=== PATIENT | female | born 1990 | race Caucasian/White ===

== ENCOUNTER 2017-07-07 04:18 | Inpatient (IN) | payer OTHER ==
[2017-07-07] MEDS ORDERED: RINGERS SOLUTION,LACTATED 300 ML IV ONE (04:40)
[2017-07-07] MEDS ORDERED: PENICILLIN G POTASSIUM 5,000,000 UNIT in DEXTROSE 5%-WATER 100 ML IV ONE (04:40)
[2017-07-07] MEDS ORDERED: RINGERS SOLUTION,LACTATED 1,000 ML IV PRN (04:40)
[2017-07-07] MEDS ORDERED: PENICILLIN G-K 5 MILLION UNIT VIAL ONE ×2 (04:54→09:03)
[2017-07-07 05:02] LABS: APPEARANCE,URINE CLEAR; BILIRUBIN,URINE NEGATIVE (NEGATIVE); GLUCOSE, URINE NEGATIVE (NEGATIVE); KETONES,URINE NEGATIVE (NEGATIVE); LEUKOCYTE ESTERASE,URINE NEGATIVE (NEGATIVE); NITRITE,URINE NEGATIVE (NEGATIVE); PROTEIN,URINE NEGATIVE (NEGATIVE); URINE SPECIFIC GRAVITY 1.005; UROBILINOGEN,URINE NEGATIVE mg/dL (<2.0)
[2017-07-07 05:04] LABS: ABSOLUTE EOSINOPHILS # (AUTO) 0.1 10^3/uL (0.0-0.6); ABSOLUTE LYMPHOCYTES (AUTO) 1.6 10^3/uL (0.5-4.7); ABSOLUTE MONOCYTES (AUTO) 0.7 10^3/uL (0.1-1.4); ABSOLUTE NEUT (AUTO) 11.8 10^3/uL (1.7-8.2); BASOPHILS % (AUTO) 0.3 % (0-2); EOSINOPHILS % (AUTO) 0.4 % (0-6); HEMATOCRIT 36.9 % (36.0-47.0); HEMOGLOBIN 12.6 g/dL (12.0-15.5); HGB HCT DIFFERENCE 0.9; LYMPHOCYTES % (AUTO) 11.1 % (13-45); MEAN CORPUSCULAR HEMOGLOBIN 29.5 pg (27.0-33.4); MEAN CORPUSCULAR HGB CONC 34.3 g/dL (32.0-36.0); MEAN CORPUSCULAR VOLUME 86 fl (80-97); MONOCYTES % (AUTO) 5.3 % (3-13); RED BLOOD COUNT 4.28 10^6/uL (3.72-5.28); SEGMENTED NEUTROPHILS % (AUTO) 82.9 % (42-78); WHITE BLOOD COUNT 14.2 10^3/uL (4.0-10.5)
[2017-07-07 05:16] LABS: URINE BARBITURATES SCREEN NEGATIVE; URINE METHADONE SCREEN NEGATIVE; URINE OPIATES LOW NEGATIVE; URINE PHENCYCLIDINE SCREEN NEGATIVE
[2017-07-07 05:21] LABS: ALANINE AMINOTRANSFERASE 36 U/L (9-52); ALBUMIN 3.5 g/dL (3.5-5.0); ALKALINE PHOSPHATASE 207 U/L (38-126); ANION GAP 11 (5-19); ASPARTATE AMINO TRANSFERASE 21 U/L (14-36); BILIRUBIN,DIRECT 0.2 mg/dL (0.0-0.4); BILIRUBIN,TOTAL 0.3 mg/dL (0.2-1.3); BLOOD UREA NITROGEN 8 mg/dL (7-20); CALCIUM 9.1 mg/dL (8.4-10.2); CARBON DIOXIDE 22 mmol/L (22-30); CHLORIDE 107 mmol/L (98-107); CREATININE RESULT 0.55 mg/dL (0.52-1.25); GLUCOSE 89 mg/dL (75-110); LDH 408 U/L (313-618); SODIUM 139.6 mmol/L (137-145); TOTAL PROTEIN 6.3 g/dL (6.3-8.2); URIC ACID 3.5 mg/dL (2.5-6.2)
[2017-07-07 05:30] LABS: POTASSIUM 4.1 mmol/L (3.6-5.0)
[2017-07-07] MEDS ORDERED: OXYTOCIN/NORMAL SALINE 20 UNIT/1,000 ML RTUINJ ONE (06:51)
[2017-07-07] MEDS ORDERED: OXYTOCIN/NORMAL SALINE 20,000 UNIT/1,000,000 ML RTUINJ IV PRN (07:00)
[2017-07-07] MEDS ORDERED: PENICILLIN G POTASSIUM 2,500,000 UNIT in DEXTROSE 5%-WATER 50 ML IV SCH (09:00)
[2017-07-07] MEDS ORDERED: PENICILLIN G-K 5 MILLION UNIT VIAL IV SCH (10:00)
--- NOTE | 2017-07-07 10:38 | L&D Progress Notes ---
PROGRESS NOTES Datetime Report Generated by CPN: 07/07/2017 10:38 PROGRESS NOTE Impression: Normal Progression of Labor Plan: Continue Present Management Informed Consent Obtained: Vaginal Delivery; Induction of Labor Vital Signs : Reviewed; Within Normal Limits Comment: IOL for CHTN at term. denies PASTOR/visual changes/RUQ pain. DTRs 2+/2+. denies needs. SROM for clear fluid at 0900. c/w Dr Gilliland, continue pitocin IOL, anticipate VAGINAL EXAM Contractions: Q2 mins-mild to mod MEMBRANES Membranes: Ruptured FETUS A FHR - Baseline: 145 Monitoring: External US Variability: Moderate 6-25bpm Accelerations: 15X15 Decelerations: None FHR Category: Category I : 40+2 Estimated Weight (gm): 3300 Presentation: Vertex SIGNATURE SIGNATURE: [id number] Assignment: Ellen Gilliland MD Signature: with User ID: [email or web address] : with User ID: [email or web address]
[2017-07-07] MEDS ORDERED: MISOPROSTOL 0.2 MG TABLET ONE (11:46)
[2017-07-07] MEDS ORDERED: LIDOCAINE 1% INJ-PF (10 MG/ML) 30 ML SDV ONE (11:47)
[2017-07-07] MEDS ORDERED: ACETAMINOPHEN WITH CODEINE #3 TABLET PO PRN ×2 (12:31)
[2017-07-07] MEDS ORDERED: MAGNESIUM HYDROXIDE SUSP 30 ML UDCUP PO PRN (12:31)
[2017-07-07] MEDS ORDERED: GLYCERIN/WITCH HAZEL LEAF 1 EACH MED..PAD TP PRN (12:31)
[2017-07-07] MEDS ORDERED: PROMETHAZINE HCL 25 MG SUPP.RECT PR PRN (12:31)
[2017-07-07] MEDS ORDERED: DIBUCAINE 1% OINTMENT 28 GM TP PRN (12:31)
[2017-07-07] MEDS ORDERED: NA PHOS,M-B/NA PHOS,DI-BA (ADULT) 133 ML ENEMA PR PRN (12:31)
[2017-07-07] MEDS ORDERED: ACETAMINOPHEN 650 MG SUPP.RECT PR PRN (12:31)
[2017-07-07] MEDS ORDERED: PROMETHAZINE HCL 25 MG TABLET PO PRN (12:31)
[2017-07-07] MEDS ORDERED: PROMETHAZINE HCL INJ 25 MG/1 ML VIAL IV PRN (12:31)
[2017-07-07] MEDS ORDERED: ZOLPIDEM TARTRATE 5 MG TABLET PO PRN (12:31)
[2017-07-07] MEDS ORDERED: PSEUDOEPHEDRINE HCL 30 MG TABLET PO PRN (12:31)
[2017-07-07] MEDS ORDERED: MEASLES,MUMPS&RUBELLA VACC/PF 0.5 ML VIAL SUBCUT PRN (12:31)
[2017-07-07] MEDS ORDERED: DIPHENHYDRAMINE HCL 25 MG CAPSULE PO PRN (12:31)
[2017-07-07] MEDS ORDERED: OXYTOCIN/NORMAL SALINE 20 UNIT/1,000 ML RTUINJ IV PRN (12:31)
[2017-07-07] MEDS ORDERED: BENZOCAINE/MENTHOL AEROSOL SPRAY 56 ML TOP PRN (12:31)
[2017-07-07] MEDS ORDERED: DIPH/PERTUSS(ACELL)/TETANUS VAC/PF 0.5 ML SYR (>=10YO) IM PRN (12:31)
--- NOTE | 2017-07-07 14:23 | Admission Physical ---
Datetime Report Generated by CPN: 07/07/2017 14:23 CURRENT ADMISSION Chief Complaint: Scheduled Induction of Labor Indication for Induction: Chronic Hypertension; Maternal Diabetes Indication for Induction: Term, Intrauterine ; No Active Labor; Induction of Labor Indication for Induction- Other: A1 GDM Admit Plan: Admit to Unit; Initiate Labor Induction Protocol ALLERGIES Medication Allergies: No Medication Allergies: No Known Allergies (07/07/2017) Latex: No Latex Allergies Food Allergies: none Environmental Allergies: none OBSTETRICAL HISTORY EDC: 07/05/2017 00:00 : 2 Para: 1 Term: 1 : 0 SAB: 0 IAB: 0 Ectopic: 0 Livin Cesareans: 0 VBACs: 0 Multiple Births: 0 Gestational Diabetes: Yes Rh Sensitization: No Incompetent Cervix: No KIM: No Infertility: No ART Treatment: No Uterine Anomaly: No IUGR: No Hx Previous C/S: No Macrosomia: No Hx Loss/Stillborn: No PIH: No Hx : No Placenta Previa/Abruption: No Depression/PP Depression: No PTL/PROM: No Post Hemorrhage: No Current Procedures: Ultrasound; NST Obstetrical History Comments: G1: Female 2006 7 lbs 13 ounces G2: Current, GDM, CHTN SEE RECORDS Alcohol: No Marijuana : No Cocaine: No Other Illicit Drugs: No Cigarettes: Never Smoker. 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 Heart Disease: No Hosp/Surgery: Yes Autoimmune Disorder: No Anesthetic Complications: No Kidney Disease: No Abnormal Pap Smear: No Neuro/Epilepsy: No Psychiatric Disorders: No Other Medical Diseases: No Hepatitis/Liver Disease: No Significant Family History: No Varicosities/Phlebitis: No Trauma/Violence : No Thyroid Dysfunction: No Medical History Comments: CHTN, GDM, Childbirth, R Ul[place] shortened INFECTIOUS HISTORY Gonorrhea: No Genital Herpes: No Chlamydia: No Tuberculosis: No Syphilis: No Hepatitis: No HIV/AIDS Exposure: No Rash or Viral Illness: No HPV: No PHYSICAL EXAM General: Normal HEENT: Normal Neurologic: Normal Thyroid: Normal Heart: Normal Lungs: Normal Breast: Deferred Back: Normal Abdomen: Normal Genitourinary Exam: Deferred Extremities: Normal DTRs: Normal Pelvic Type: Adequate Vital Signs: Reviewed Details Vital Signs: mild range elevated BP VAGINAL EXAM Contraction Comments: Q2 mins-mild to mod MEMBRANES Membranes: Ruptured FETUS A EGA: 40.2 Monitoring: External US FHR- Baseline: 145 Variability: Moderate 6-25bpm Accelerations: 15X15 Decelerations: None FHR Category: Category I Estimated Weight (gm): 3300 Presentation: Vertex PLANS FOR LABOR AND DELIVERY Labor and Delivery: None Pain Management: None Feeding Preference: Breast Benefit of Breast Feed Discussed: Yes Circumcision: Yes INFORMED CONSENT Informed Consent Obtained: Vaginal Delivery; Induction of Labor Assignment: Ellen Gilliland MD Signature: with User ID: [email or web address], Addendum/Amendment: 27yo at 40w2d with CHTN, not on meds during (was on lisinopril prior to . Also GDM A1 with FSBS 86 at 0500. Admitted this AM for IOL with cx /-1. GBS positive. P: GBS pos-penicillin IV Q4h until delivery; CHTN-continue to monitor for s/s worsening HTN, PIH labs; GDM-resume regular diet, no meds. Signature: with User ID: [email or web address] : with User ID: [email or web address], Addendum/Amendment: 27yo at 40w2d with CHTN, not on meds during (was on lisinopril prior to . Also GDM A1 with FSBS 86 at 0500. Admitted this AM for IOL with cx /-1. GBS positive. P: GBS pos-penicillin IV Q4h until delivery; CHTN-continue to monitor for s/s worsening HTN, PIH labs; GDM-resume regular diet, no meds. : with User ID: [email or web address]
--- NOTE | 2017-07-07 16:18 | Delivery Summary ---
Del Sum A-C Datetime Report Generated by CPN: 07/07/2017 16:18 DELIVERY PERSONNEL DELIVERY PERSONNEL: [id number] Delivery Doctor:: Carter Brizuela CNM Nurse Loop Sewer Certified:: Carter Brizuela CNM Labor and Delivery Nurse:: TONG Steiner Tech/TECHNICAL SALES ADVISOR: J Gutierres ST MATERNAL INFORMATION Delivery Anesthesia: None Medications After Delivery: Pitocin Bolus-Please Comment; Pitocin Drip 20 Units/1000ml NSS Estimated Blood Loss (ml): 300 Provider Comments: AFTER IOL FOR CHTN, MICHELLE OF VIABLE MALE WITH SPONTANEOUS CRY AFTER STIMULATION. CORD CLAMP DELAYED BY 1.5 MINUTES. CORD DOUBLE CLAMPED AND CUT BY FOB. LEFT PERIURETHRAL LACERATION NOT REPAIRED. SPONTANEOUS INTACT PLACENTA DELIVERED. MOTHER AND STABLE IN L_D #5. LABOR SUMMARY EDC: 07/05/2017 00:00 No. Babies in Womb: 1 Attempted: No Labor Anesthesia: None LABOR INFORMATION Reason for Induction: Maternal Diabetes Onset of Labor: 07/07/2017 10:00 Complete Dilatation: 07/07/2017 12:19 Oxytocin: Induction Group B Beta Strep: Positive Antibiotics Time of Last Dose: Name of Antibiotic Given: PCN Steroids Given: None Reason Steroids Not Administered: Not Applicable MEMBRANES Membranes Rupture Method: Spontaneous Rupture of Membranes: 07/07/2017 09:00 Length of Rupture (hr): 3.45 Amniotic Fluid Color: Clear Amniotic Fluid Amount: Small STAGES OF LABOR Stage 1 hr: 2 Stage 1 min: 19 Stage 2 hr: 0 Stage 2 min: 8 Stage 3 hr: 0 Stage 3 min: 10 Total Time in Labor hr: 2 Total Time in Labor min: 37 VAGINAL DELIVERY Episiotomy: None Laceration #1: Periurethral Laceration Extension #1: N/A Laceration Repair: Not Applicable Laceration Repair Note: left periurethral hemostatic, no repair needed Sponge Count Correct: Yes Sharps Count Correct: Yes CSECTION DELIVERY Primary Indication: N/A Secondary Indication: N/A CSection Incidence: N/A Labor: N/A Elective: N/A CSection Incision: N/A BABY A INFORMATION Infant Delivery Date/Time: 07/07/2017 12:27 Method of Delivery: Vaginal Born in Route : No : N/A Forceps: N/A Vacuum Extraction: N/A Shoulder Dystocia : Yes PRESENTATION/POSITION BABY A Presentation: Cephalic Cephalic Presentation: Vertex Vertex Position: Left Occipital Anterior Breech Presentation: N/A PLACENTA INFORMATION BABY A Placenta Delivery Time : 07/07/2017 12:37 Placenta Method of Delivery: Spontaneous Placenta Status: Delivered SCORES BABY A Heart Rate 1 min: >100 bpm Resp Effort 1 min: Good Cry Reflex Irritability 1 min: Cough or Sneeze or Pulls Away Muscle Tone 1 min: Active Motion Color 1 min: Blue/Pale Resuscitation Effort 1 min: Tactile Stimulation SCORE 1 MIN: 8 Heart Rate 5 min: >100 bpm Resp Effort 5 min: Good Cry Reflex Irritability 5 min: Cough or Sneeze or Pulls Away Muscle Tone 5 min: Active Motion Color 5 min: Body Shell Point, Extremities Blue Resuscitation Effort 5 min: N/A SCORE 5 MIN: 9 Resuscitation Effort 10 min: N/A INFORMATION BABY A Gestational Age at Delivery: 40.2 Gestational Status: Full Term- 39- 40.6 Weeks Infant Outcome : Liveborn Condition : Stable Infant Sex: Male IDENTIFICATION BABY A Infant Verification Date/Time: 07/07/2017 12:56 ID Band Number: [id number] Mother's Name Verified: Yes Infant RN Verifying : K Barrington RNC/C Otiliaerman RN WEIGHT/LENGTH BABY A Infant Birthweight (gm): 3815 Weight (lb): 8 Weight (oz): 7 Infant Length (in): 21.50 Infant Length (cm): 54.61 CORD INFORMATION BABY A No. Cord Vessels: 3 Nuchal Cord : N/A Cord Blood Taken: Yes-For Storage (Mom's Blood type +) Infant Suction: Mouth; Nose ASSESSMENT BABY A Complications: None Physical Findings at Delivery: Within Normal Limits Infant Respirations: Appears Normal Skin to Skin: Yes Skin to Skin Time (min): 60 Haul Truck Driver/ALS Called : No Care By: K Barrington RNC Transferred To: Remains with Mother BABY B INFORMATION : N/A SIGNATURES Assignment: Ellen Gilliland MD Signature: with User ID: [email or web address] : with User ID: [email or web address] : I was personally available for consultation and serving as supervising physician for the MLP.
[2017-07-07] MEDS: IBUPROFEN 800 MG TABLET PO SCH ×2 (18:05→21:47)
[2017-07-07] MEDS: FERROUS SULFATE 325 MG TABLET PO SCH (18:53)
[2017-07-07] MEDS: DOCUSATE SODIUM 100 MG CAPSULE PO SCH (18:54)
[2017-07-07] MEDS: FAMOTIDINE 20 MG TABLET PO SCH (21:48)
[2017-07-08] MEDS: IBUPROFEN 800 MG TABLET PO SCH ×3 (06:03→21:19)
[2017-07-08 07:50] LABS: HEMATOCRIT 34.6 % (36.0-47.0); HEMOGLOBIN 11.7 g/dL (12.0-15.5); HGB HCT DIFFERENCE 0.5; MEAN CORPUSCULAR HEMOGLOBIN 29.3 pg (27.0-33.4); MEAN CORPUSCULAR HGB CONC 33.7 g/dL (32.0-36.0); MEAN CORPUSCULAR VOLUME 87 fl (80-97); RED BLOOD COUNT 3.97 10^6/uL (3.72-5.28); RED CELL DISTRIBUTION WIDTH 13.1 % (11.5-14.0); WHITE BLOOD COUNT 13.3 10^3/uL (4.0-10.5)
[2017-07-08] MEDS ORDERED: PRENATAL VITAMIN W-O CA NO5/FE FUMARATE/FA CAPSULE PO SCH (10:00)
--- NOTE | 2017-07-08 10:09 | PDOC PROGRESS REPORT ---
Subjective-OB Subjective: Post Delivery Day: 1 27 year old. Denies any needs at this time, states lochia is stable, pain well controlled, voiding without difficulty. Physical Exam (OB) Vital Signs: Temp Pulse Resp BP Pulse Ox 98 F 73 16 127/74 H 100 07/08/17 08:57 07/08/17 08:57 07/08/17 08:57 07/08/17 08:57 07/08/17 08:57 Intake & Output 07/07/17 07/08/17 07/09/17 06:59 06:59 06:59 Weight 76.6 kg - Lochia Lochia Amount: Scant < 10 ml Lochia Color: Rubra/Red - Abdomen Description: Soft, Flat Hernia Present: No Fundal Description: Firm, Midline Fundal Height: u/3 - u/4 Objective-Diagnostic Laboratory: 07/08/17 07:30 07/07/17 04:53 07/08/17 07:30 WBC 13.3 H RBC 3.97 Hgb 11.7 L Hct 34.6 L MCV 87 MCH 29.3 MCHC 33.7 RDW 13.1 Plt Count 147 L Assessment and Plan(PN) - Assessment and Plan (1) Vaginal delivery Is this a current diagnosis for this admission?: Yes Plan: routine pp care (2) Acute blood loss anemia Is this a current diagnosis for this admission?: Yes Plan: ferrous sulfate increase dietary iron (3) Chronic hypertension Is this a current diagnosis for this admission?: Yes Plan: monitor bp (4) Gestational diabetes Qualifiers: Gestational diabetes mellitus control: diet-controlled Is this a current diagnosis for this admission?: Yes Plan: monitor yearly - Time Spent with Patient Time with patient: Less than 15 minutes Critical Time spent with patient: Less than 15 minutes Medications reviewed and adjusted accordingly: Yes - Disposition Anticipated Discharge: Home Within: within 24 hours
[2017-07-08] MEDS: PRENATAL VITAMIN W DHA CAPSULE PO SCH (10:24)
[2017-07-08] MEDS: FAMOTIDINE 20 MG TABLET PO SCH ×2 (10:24→21:19)
[2017-07-08] MEDS: SENNOSIDES/DOCUSATE 8.6-50 MG 1 EACH TABLET PO SCH (10:25)
[2017-07-08] MEDS: FERROUS SULFATE 325 MG TABLET PO SCH ×2 (10:25→17:29)
[2017-07-08] MEDS: DOCUSATE SODIUM 100 MG CAPSULE PO SCH ×2 (10:25→17:29)
[2017-07-09] MEDS: IBUPROFEN 800 MG TABLET PO SCH ×2 (05:43→14:38)
[2017-07-09] MEDS: FAMOTIDINE 20 MG TABLET PO SCH (09:35)
[2017-07-09] MEDS: SENNOSIDES/DOCUSATE 8.6-50 MG 1 EACH TABLET PO SCH (09:35)
[2017-07-09] MEDS: DOCUSATE SODIUM 100 MG CAPSULE PO SCH ×2 (09:36→17:26)
[2017-07-09] MEDS: FERROUS SULFATE 325 MG TABLET PO SCH ×2 (09:36→17:26)
[2017-07-09] MEDS: PRENATAL VITAMIN W DHA CAPSULE PO SCH (09:36)
--- NOTE | 2017-07-09 09:50 | PDOC DISCHARGE SUMMARY ---
Final Diagnosis Discharge Date: 07/09/17 - Final Diagnosis (1) Vaginal delivery Is this a current diagnosis for this admission?: Yes (2) Acute blood loss anemia Is this a current diagnosis for this admission?: Yes (3) Chronic hypertension Is this a current diagnosis for this admission?: Yes (4) Gestational diabetes Is this a current diagnosis for this admission?: Yes Discharge Data - Discharge Medication Home Medications: Vitamin [-U Multiple Vitamin Capsule] 1 tab PO DAILY 07/07/17 Docusate Sodium [Colace 100 mg Capsule] 100 mg PO BID #60 capsule 07/09/17 Ibuprofen [Motrin 800 mg Tablet] 800 mg PO Q8 #60 tablet 07/09/17 Gestational Age: 40.2 Reason(s) for Admission: Induction of Labor, PIH, Gestional Diabetes, Group B Strep Positive Procedures: NST Intrapartum Procedure(s): Spontaneous Vaginal Delivery - Data Baby 1 Male at 1 minute: 8 at 5 minutes: 9 Weight: 3815 kg Home with Mother: Yes Complications: No - Diagnosis Test Laboratory: Temp Pulse Resp BP Pulse Ox 97.7 F 73 15 134/75 H 100 07/09/17 07:44 07/09/17 07:44 07/09/17 07:44 07/09/17 07:44 07/09/17 07:44 07/07/17 07/07/17 07/08/17 04:29 04:53 07:30 RBC 4.28 3.97 Hgb 12.6 11.7 L Hct 36.9 34.6 L Urine Opiates Screen NEGATIVE - Discharge information/Instructions Discharge Activity: Activity As Tolerated, Pelvic Rest, No tub bath Discharge Diet: Regular Disposition: HOME, SELF-CARE Follow up with: [facility] in: 1, Weeks
[2017-07-09 16:04] VITALS: BP 122/74
== END 2017-07-09 19:00 | disposition home or self-care (01) | DRG 774 ==
LOC: LR 04:18 → 2S 14:22
PROVIDERS: ADMIT Student in an Organized Health Care Education/Training Program; ATTEND Student in an Organized Health Care Education/Training Program
PROC: 10E0XZZ Delivery of Products of Conception, External Approach (ICD-10-PCS; principal; 2017-07-07)
PROC: 4A1HXCZ Monitoring of Products of Conception, Cardiac Rate, External Approach (ICD-10-PCS; 2017-07-07)
PROC: 3E033VJ Introduction of Other Hormone into Peripheral Vein, Percutaneous Approach (ICD-10-PCS; 2017-07-07)
DX: O10.92 Unspecified pre-existing hypertension complicating childbirth (principal); D62 Acute posthemorrhagic anemia; O24.429 Gestational diabetes mellitus in childbirth, unspecified control; O71.82 Other specified trauma to perineum and vulva; O99.02 Anemia complicating childbirth; O99.824 Streptococcus B carrier state complicating childbirth; Z37.0 Single live birth; Z3A.40 40 weeks gestation of pregnancy
CPT/HCPCS: 36415; 80053; 80307; 81001; 82962; 83615; 84550; 85025; 85027; 86592; 86850; 86900; 86901; J2540; J2590; J3490